=== PATIENT | female | born 1940 | race Caucasian/White ===

== ENCOUNTER 2019-06-23 17:22 | Emergency (ER) | payer MEDICARE, OTHER ==
[~2019-06-23] VITALS: Ht 160 cm; Wt 74.8 kg
[2019-06-23] MEDS ORDERED: PLAVIX 75 MG TA75 MG PO (17:42)
[2019-06-23] MEDS ORDERED: NORVASC 2.5 MG2.5 M1 PO (17:42)
[2019-06-23] MEDS ORDERED: INTERMEZZO3.5 MG SUBLING (17:43)
[2019-06-23] MEDS ORDERED: METFORMIN HCL500 MG PO (17:43)
[2019-06-23] MEDS ORDERED: TOPROL XL50 MG PO (17:43)
[2019-06-23] MEDS ORDERED: ZOCOR40 MG PO (17:43)
[2019-06-23] MEDS ORDERED: ALPRAZOLAM ER1 MG PO (17:44)
[2019-06-23] MEDS ORDERED: BUPROPION XL300 MG PO (17:44)
[2019-06-23] MEDS ORDERED: SERTRALINE HCL100 MG PO (17:44)
[2019-06-23 20:04] LABS: INFLUENZA A ANTIGEN Negative (Negative); INFLUENZA B ANTIGEN Negative (Negative)
[2019-06-23] MEDS ORDERED: FLEXERIL PO (20:32)
[2019-06-23] MEDS ORDERED: LORCET 5-325 M1 EACH PO (20:32)
[2019-06-23 20:56] VITALS: BP 168/74
--- NOTE | 2019-06-26 13:56 | EKG ---
[place] [address] ELECTROCARDIOGRAM REPORT Name: WHITLEY VENEGAS Room: [facility]#: [id number] Admission: 06/23/19 Attend Phys: Discharge: 06/23/19 Date of : 38 Date of Service: 06/23/19 1833 Report #: [id number] THIS REPORT FOR: cc: Shannon Tran MD, Pamela MD Holkins,Neo Jason MD [facility] ~ THIS REPORT FOR: //name// [facility] ED Test Date: 2019-06-23 Test Time: 18:33:12 Pat Name: WHITLEY VENEGAS Department: Room: Gender: [employer]: : 1940 Requested By: Nuris David Order Number: [id number] Mikey MD: Neo Lynch Measurements Intervals [place] Rate: 56 P: 29 OR: 183 QRS: 3 QRSD: 105 T: 41 QT: 429 QTc: 415 Interpretive Statements Sinus rhythm Baseline wander in lead(s) I No previous ECG available for comparison Electronically Signed On 06-24-2019 16:05:51 [employer]NAGER [employer]LOOR by Neo Lynch [email or web address] <ELECTRONICALLY SIGNED> By: Neo Lynch MD, [facility] 06/24/19 1605 1833 1833 Neo Lynch MD, [facility] /EPI
== END 2019-06-23 20:56 | disposition home or self-care (01) ==
LOC: M.ERS 17:22
PROVIDERS: Emergency Medicine
DX: M54.32 Sciatica, left side (principal); R07.89 Other chest pain; I10 Essential (primary) hypertension; E11.9 Type 2 diabetes mellitus without complications; Z88.0 Allergy status to penicillin; Z88.8 Allergy status to other drugs, medicaments and biological substances